=== PATIENT | female | born 1985 | race Caucasian/White ===

== ENCOUNTER 2020-04-20 08:41 | Emergency (ER) | payer BC, OTHER ==
[2020-04-20 09:18] LABS: #Basophils 0.1 thou/uL (0.0-0.2); #Eosinphils 0.1 thou/uL (0.0-0.7); #Monocytes 0.7 thou/uL (0.11-0.59); #Neutrophils 4.5 thou/uL (1.40-6.50); %Basophils 0.9 % (0.0-1.0); %Eosinophils 0.9 % (0.0-10.0); %Monocytes 9.3 % (0.0-10.0); %Neutrophils 61.8 % (42.0-75.0); Hemoglobin 15.7 g/dL (12.0-16.0); Mean Corpuscular HGB CONC 35.4 g/dL (32.0-36.0); Mean Corpuscular Hemoglobin 32.5 pg (27.0-31.0); Mean Corpuscular Volume 91.7 fL (78.0-98.0); Mean Platelet Volume 7.1 fL (7.4-10.4); Platelet Count 363 thou/uL (130-400); RBC Distribution Width 11.7 % (11.5-14.5); Red Blood Cell (RBC) Count 4.85 mill/uL (4.20-5.40); White Blood Cell (WBC) Count 7.3 thou/uL (4.8-10.8)
[2020-04-20] MEDS ORDERED: Morphine 4 MG/ML VIAL ONE (09:21)
[2020-04-20 09:32] LABS: Bilirubin Negative (Negative); Blood, Urine Negative (Negative); Clarity Clear (Clear); Glucose, Urine (Dipstick) Normal (Negative); Ketone, Urine Negative (Negative); Leukocyte Negative Leu/uL (Negative); Nitrite Negative (Negative); Protein, Urine (Dipstick) Negative (Neg-Trace); Specific Gravity, Urine 1.004 (1.002-1.036); Urobilinogen Normal mg/dL (Less than 2); pH, Urine 5.5 (5.0-9.0)
[2020-04-20 09:36] LABS: Pregnancy Test - Urine (BHCG) Negative (Negative); Pregu Control Background? CLEAR/WHITE (CLR/WHITE); Pregu Control Bar Appear? YES (CONTROL BAR); Specific Gravity 1.004 (1.002-1.036)
[2020-04-20 09:39] LABS: ALT (SGPT) 15 U/L (8-55); AST (SGOT) 17 U/L (5-34); Albumin 4.6 g/dL (3.5-5.0); Alkaline Phosphatase 61 U/L (40-110); Anion Gap 14 mmol/L (10-20); BUN (Urea Nitrogen) 7 mg/dL (7.0-18.7); Bilirubin, Total 0.3 mg/dL (0.2-1.2); Calc. Creatinine Clearance 0 mL/min (70-130); Calcium 9.9 mg/dL (7.8-10.44); Carbon Dioxide 24 mmol/L (22-29); Chloride 104 mmol/L (98-107); Estimated GFR-MDRD 89; Glucose 91 mg/dL (70-105); Lipase 41 U/L (8-78); Potassium 3.9 mmol/L (3.5-5.1); Protein, Total 7.6 g/dL (6.0-8.3); Sodium 138 mmol/L (136-145)
--- NOTE | 2020-04-20 10:31 | ULT ---
RIGHT UPPER QUADRANT ABDOMINAL ULTRASOUND: Date: HISTORY: Right upper quadrant pain that began last night. TECHNIQUE: Multiplanar Agrawal scale and color Doppler images were obtained in a right upper quadrant abdominal ult rasound. FINDINGS: The liver is normal in echogenicity without focal lesions or intrahepatic ductal dilatation. The gall bladder is normal without stones, sludge, gallbladder wall thickening, or pericholecystic fluid. The common bile duct is normal, measuring 3.0 mm. The visualized portions of the pancreas are unremarkable. The right kidney is normal in echogenicity without hydronephrosis or calculus and measures 12.0 cm in length. IMPRESSION: Unremarkable exam. POS: AH
--- NOTE | 2020-04-20 10:56 | CT ---
CT Abdomen Pelvis W Con History: Right lower quadrant pain Comparison: Reference is made to a right upper quadrant ultrasound same day Findings: Lung bases are clear. No pericardial effusion. The liver, gallbladder, spleen, pancreas, ad renal glands are unremarkable. Mild fullness of the right renal collecting system. No ureteral dilatation. No nephrolithiasis. Aortoiliac contour is nonaneurysmal. No dilated loops of large or small bowel. The appendix is visual ized and is normal. The pancreas, spleen, adrenal glands are normal. No acute osseous abnormality. Impression: 1. Normal appendix. 2. No evidence for bowel obstruction. 3. Mild right hydronephrosis without hydroureter can be sequelae of low-grade UPJ obstruction versus a recently passed stone although there is no nephrolithiasis of either kidney. 4. No pericholecystic inflammation.
== END 2020-04-20 11:49 | disposition home or self-care (01) ==
LOC: ERS 08:41
DX: R10.11 Right upper quadrant pain (principal); D64.9 Anemia, unspecified; G43.909 Migraine, unspecified, not intractable, without status migrainosus; F32.9 Major depressive disorder, single episode, unspecified; Z87.891 Personal history of nicotine dependence; Z79.899 Other long term (current) drug therapy
CPT/HCPCS: 36415; 74177; 76705; 80053; 81003; 81025; 83690; 85025; 96374; J2270

== ENCOUNTER 2020-04-27 09:03 | Outpatient (CLI) | payer BC ==
--- NOTE | 2020-04-27 12:14 | NM ---
NUCLEAR MEDICINE HEPATOBILIARY SCAN: DATE: 04/27/2020 HISTORY: 35-year-old female with right upper quadrant abdominal pain TECHNIQUE: Technetium 99m-mebrofenin dose: 5.3 mCi. Fatty meal Ensure: 8 oz. Tc 99- mebrofenin injected IV. Dynamic anterior scintigraphy of abdomen for one hour. Fatty meal admi nistered. Additional dynamic anterior scintigraphy of abdomen. Counts obtained over the gallbladder. Time-activity curve generated. FINDINGS: There is normal uptake and washout of radiopharmaceutical agent at the liver. The gallbladder fills n ormally. Bowel activity is visualized. The gallbladder ejection fraction is normal: 77 % IMPRESSION: Normal.
== END 2020-04-27 09:04 | disposition home or self-care (01) ==
LOC: NM 09:03
PROVIDERS: ATTEND Family Medicine
DX: R10.11 Right upper quadrant pain (principal)
CPT/HCPCS: 78227; A9537